=== PATIENT | female | born 1975 | race Caucasian/White ===

== ENCOUNTER 2023-02-21 12:20 | Emergency (ER) | payer OTHER ==
[~2023-02-21] VITALS: Ht 162.6 cm; Wt 56.7 kg
== END 2023-02-21 17:09 | disposition home or self-care (01) ==
LOC: ER 12:21
PROVIDERS: Emergency Medicine
DX: K29.20 Alcoholic gastritis without bleeding (principal); R11.10 Vomiting, unspecified

== ENCOUNTER 2023-09-10 07:09 | Outpatient (CLI) | payer OTHER | END 2023-09-10 08:00 | disposition home or self-care (01) | LOC: SONOGRAMA 07:09 | PROVIDERS: ATTEND General Practice | DX: R10.9 Unspecified abdominal pain (principal); K21.9 Gastro-esophageal reflux disease without esophagitis; K42.9 Umbilical hernia without obstruction or gangrene ==